=== PATIENT | female | born 1985 | race Caucasian/White ===

== ENCOUNTER 2019-01-15 20:32 | Inpatient (IN) | payer OTHER ==
[2019-01-15] MEDS ORDERED: Nalbuphine* 10 MG/ML 1 ML VIAL IM PRN (21:13)
[2019-01-15] MEDS ORDERED: Promethazine INJ(RESTRICTED)* 25 MG/ML 1 ML VIAL IM PRN (21:14)
--- NOTE | 2019-01-15 21:21 | PN ---
L&D Outpatient: Visit - Reproductive Information Estimated Due Date: 01/24/19 Gestational Age: 38 Weeks and 5 Days : 1 Para: 0 - Reason for Visit Visit Reason: Patient presents with complaints of contractions since 530pm to r/o labor. Denies leakage of fluid or vaginal bleeding. - Antepartal Records Antepartal Record: Reviewed, Uncomplicated - Patient History Patient History Significant: Yes Patient History Significant For: Hypothyroidism Review of Systems Constitutional: Comfortable CV Complaint: No Respiratory: Shortness of Breath: No Gastrointestinal: No Nausea/Vomiting, Normal Bowel Movement Genitourinary: No Dysuria, No Bleeding, No Leaking Fluid Musculoskeletal: Contractions - Q 6-7 min apart Neurological: No Headache, No Visual Changes Movement: Normal L&D Outpatient: Exam Vitals - Most Recent: Temp 98.8 BP 117/72 P 86 RR 16 POx 99% RA - Cervical Exam Cervical Exam: 1-2/thick/posterior /cephalic/-1 station - Abdominal Exam Abdomen Exam: Non-Tender, Fundal Height Consistent with Dates - Membranes Membrane Status: Intact - Ultrasound/Biophysical Profile Ultrasound Status: Not Done Biophysical Profile: Normal Reactive NST EFM Findings - External Monitor Findings Baseline Heart Rate: 120 External Monitor Findings: Accelerations Present, No Pattern of Variable or Late Decelerations Contractions: Irregular, Mild, < 45 Seconds L&D Outpatient: Asses/Plan Assessment: Patient with contractions, q5to7 min apart, mild, lasting 40 seconds or less. - Discharge Diagnosis Discharge Diagnosis: Other Plan: Continue Observation
[2019-01-16] MEDS ORDERED: Buffered Lidocaine 1% SYRIN* 1 ML/SYRINGE INTRADERM ONE (06:49)
[2019-01-16] MEDS ORDERED: Lactated Ringers 1000 ML Bag* 1,000 ML IV ONE ×2 (06:49→10:22)
[2019-01-16] MEDS ORDERED: Lactated Ringers 1000 ML Bag* 1,000 ML IV SCH ×3 (07:00→15:00)
--- NOTE | 2019-01-16 07:01 | HP ---
General Information - Reason for Visit at 39 weeks in Labor. - General Information Maternal Age: 33 Grav: 1 Para: 0 SAB: 0 IEA: 0 Estimated Due Date: 01/24/19 Determined By: Early Ultrasound Gestational Age in Weeks/Days: 39 Maternal Blood Type and Rh: B Positive - Results this Serology/RPR Result: Non-Reactive Rubella Result: Immune HBsAg Result: Negative HIV Result: Negative GBS Culture Result: Negative Past Medical History Delivery History: See Records Pertinent Past Medical History: See Records Past Medical History Comment: Hypothyroidism Migraines without Aura Vasovagal syncope Pertinent Past Surgical History: See Records Past Surgical History Comment: Partial thyroidectomy 2013 Pertinent Family History: See Records - Antepartal Records Antepartal Records: Reviewed, Uncomplicated Review of Systems Constitutional: Uncomfortable - with contractions CV Complaint: No Respiratory: Shortness of Breath: No Gastrointestinal: No Nausea/Vomiting, Normal Bowel Movement Genitourinary: No Dysuria, No Bleeding, No Leaking Fluid Musculoskeletal: No Complaint, No Epigastric Pain, Contractions Neurological: No Headache, No Visual Changes Movement: Normal Exam Allergies/Adverse Reactions: Allergies No Known Allergies Allergy (Verified 01/15/19 21:11) Temp 97.8 P66 BP 128/72 RR 17 - Measurements Height: 5 ft 7 in Weight: 174 lb Weight in lbs: [id number] Body Mass Index (BMI): 27.2 Pre- Weight: 148 lb Weight Gained This : 26 lbs and 0 ozs - Exam Breast: Breast Exam Deferred CVA: No CVA Tenderness Extremities: No Edema Heart: Normal Rhythm/Heart Sounds HEENT: No Significant Findings Lungs: Clear Bilaterally Rectal: Rectal Exam Deferred Reflexes: DTR 2+ Thyroid: No Thyromegaly - Abdominal Exam Abdomen Exam: Non-Tender, Fundal Height Consistent with Dates Targeted Exam Findings See L&D Outpatient Visit Provider Note for Findings: N/A Cervical Exam: 4cm Effacement: 80% Station: -1 Presenting Part: Vertex Membrane Status: Intact Bleeding/Discharge: None EFM Findings - External Monitor Findings Baseline Heart Rate: 130 External Monitor Findings: Accelerations Present, No Pattern of Variable or Late Decelerations Contractions: Regular, 45-90 Seconds Assessment/Plan - Assessment Term in labor. - Plan Plan: IV Hydration, Admit - Anticipate Vaginal Delivery - Date/Time of Admission Date of Admission: 01/16/19 Time of Admission: 07:00
[2019-01-16 07:47] LABS: ABS Basophils 0.1 10^3/ul (0-0.2); ABS Lymphocytes 1.7 10^3/ul (1.0-4.8); ABS Monocytes 0.6 10^3/ul (0-0.8); ABS Neutrophils 13.4 10^3/ul (1.5-7.7); Hematocrit 40 % (35-47); Hemoglobin 13.3 g/dL (12.0-16.0); Lymphocyte % 10.6 %; Mean Corpuscular HGB Conc 33 g/dL (31-36); Mean Corpuscular Hemoglobin 30 pg (27-31); Mean Corpuscular Volume 89 fL (80-97); Mean Platelet Volume 9.7 fL (7.4-10.4); Platelet Count 201 10^3/uL (150-450); Red Cell Distribution Width 13 % (10-15); White Blood Count 15.7 10^3/uL (3.5-10.8)
[2019-01-16] MEDS ORDERED: OBEPIDURAL* 250 ML EPIDURAL ONE (09:48)
[2019-01-16] MEDS ORDERED: Phenylephrine 40 MCG/ML SYRINGE IV PUSH PRN ×2 (10:22)
[2019-01-16] MEDS ORDERED: Sodium Citrate/Citric Acid* 15 ML UDC PO PRN (10:22)
[2019-01-16] MEDS ORDERED: EPHEDrine (Pressors)* 50 MG/ML VIAL IV PUSH PRN (10:22)
[2019-01-16] MEDS ORDERED: Famotidine TAB* 20 MG PO PRN (10:22)
[2019-01-16] MEDS ORDERED: OBEPIDURAL* 250 ML EPIDURAL SCH (11:00)
[2019-01-16] MEDS ORDERED: Oxytocin in LR* 20 UNITS/1,000 ML BAG IVPB ONE (12:27)
[2019-01-16] MEDS ORDERED: Oxytocin in LR* 20 UNITS/1,000 ML BAG IVPB SCH ×2 (13:00→15:00)
[2019-01-16] MEDS ORDERED: Dibucaine 1% 28.35 GM TUBE PR PRN (14:59)
[2019-01-16] MEDS ORDERED: Glycerin ADULT SUPP PR PRN (14:59)
[2019-01-16] MEDS ORDERED: Witch Hazel PAD* JAR TOPICAL PRN (14:59)
[2019-01-16] MEDS ORDERED: Acetaminophen TAB* 325 MG PO PRN (14:59)
--- NOTE | 2019-01-16 16:37 | PROCNOTE ---
[facility] OB: Delivery Note - Delivery A Date of : 01/16/19 Time of : 14:50 Weight at : 5 lb 14 oz Score 1 Minute: 9 Score 5 Minutes: 9 Gestational Age in Weeks and Days at Delivery: 38 Weeks and 6 Days Delivery Method: Spontaneous Vaginal Labor: Spontaneous Did Patient attempt ?: N/A, No Previous Amniotic Fluid: Clear Anesthesia/Analgesia: IM/IV, CEI for Labor Delivered By: Asim Johnson - Nursery Level of Nursery: Regular/Bedside - Perineum Perineal Injury: None/Intact - Events Delivery Events of Note: Pitocin During Labor, Supplemental O2 to Mother - Risk for Falls Other Risk for Falls: goiter, partial thyroidectomy, migraines, vaso vagal syncope - Additional Delivery Notes Additional Delivery Notes: pt pushed well x 30 minutes with steady descent and delivery . fhr reassuring throughout
[2019-01-16] MEDS ORDERED: Simethicone TAB* 80 MG TAB.CHEW PO SCH (17:30)
[2019-01-16] MEDS: Docusate CAP* 100 MG PO SCH (19:50)
[2019-01-17] MEDS: Ibuprofen TAB* 600 MG PO PRN ×4 (01:09→20:13)
[2019-01-17 07:13] LABS: ABS Basophils 0.1 10^3/ul (0-0.2); ABS Eosinophils 0.2 10^3/ul (0-0.6); ABS Lymphocytes 2.4 10^3/ul (1.0-4.8); ABS Monocytes 0.8 10^3/ul (0-0.8); ABS Neutrophils 8.4 10^3/ul (1.5-7.7); Eosinophil % 1.4 %; Hematocrit 32 % (35-47); Hemoglobin 10.6 g/dL (12.0-16.0); Lymphocyte % 20.5 %; Mean Corpuscular HGB Conc 33 g/dL (31-36); Mean Corpuscular Hemoglobin 30 pg (27-31); Mean Corpuscular Volume 89 fL (80-97); Mean Platelet Volume 9.5 fL (7.4-10.4); Platelet Count 133 10^3/uL (150-450); Red Cell Distribution Width 13 % (10-15); White Blood Count 11.9 10^3/uL (3.5-10.8)
[2019-01-17] MEDS ORDERED: Levothyroxine TAB* 137 MCG TAB PO SCH (08:00)
[2019-01-17] MEDS: Prenatal Vitamin TAB PO SCH (08:03)
[2019-01-17] MEDS: Docusate CAP* 100 MG PO SCH ×3 (08:03→20:13)
[2019-01-17] MEDS ORDERED: Ferrous Gluconate TAB* 324 MG TAB PO SCH (09:00)
[2019-01-18] MEDS ORDERED: LEVOTHYROXINE 100 MCG PO SCH
[2019-01-18] MEDS: Ibuprofen TAB* 600 MG PO PRN ×2 (08:25→15:11)
[2019-01-18] MEDS: Prenatal Vitamin TAB PO SCH (08:25)
[2019-01-18] MEDS: Docusate CAP* 100 MG PO SCH ×2 (08:25→15:11)
[2019-01-18 08:31] VITALS: BP 127/79
== END 2019-01-18 16:16 | disposition home or self-care (01) | DRG 807 ==
LOC: MCHOBOUT 20:32 → MCHOB 01-16 06:55
PROVIDERS: ADMIT Obstetrics & Gynecology; ATTEND Obstetrics & Gynecology
PROC: 10E0XZZ Delivery of Products of Conception, External Approach (ICD-10-PCS; principal; 2019-01-16)
PROC: 10907ZC Drainage of Amniotic Fluid, Therapeutic from Products of Conception, Via Natural or Artificial Opening (ICD-10-PCS; 2019-01-16)
PROC: 4A1HXCZ Monitoring of Products of Conception, Cardiac Rate, External Approach (ICD-10-PCS; 2019-01-16)
DX: O99.284 Endocrine, nutritional and metabolic diseases complicating childbirth (principal); Z37.0 Single live birth; E89.0 Postprocedural hypothyroidism; E04.9 Nontoxic goiter, unspecified; Z3A.38 38 weeks gestation of pregnancy
CPT/HCPCS: 36415; 85025; 86850; 86900; 86901; A9270-GY; J2300; J2550